=== PATIENT | female | born 1955 | race Caucasian/White ===

== ENCOUNTER 2021-03-25 13:20 | Emergency (ER) | payer MEDICARE ==
[2021-03-25] MEDS ORDERED: SODIUM CHLORIDE 0.9% 1,000 ML IV STA (13:52)
[2021-03-25] MEDS ORDERED: LACTATED RINGERS 1,000 ML IV STA (13:52)
[2021-03-25] MEDS ORDERED: LOPERAMIDE 2 MG CAPSULE PO STA (13:52)
--- NOTE | 2021-03-25 13:56 | ED Physician Documentation ---
PD HPI ABD PAIN - Stated complaint Stated Complaint: DIARRHEA - Chief complaint Chief Complaint: Abd Pain - History obtained from History obtained from: Patient - Additional information Additional information: 65-year-old woman started having trouble with diarrhea last February. At the time she was living in [place]. Subsequently was diagnosed with lymphocytic colitis by colonoscopy in the late summer of last year. Has had on and off trouble ever since and over the last couple of weeks has had increasing troubles with diarrhea culminating today in some increased periumbilical pain and what she estimates as 25 episodes of watery blowout diarrhea today associated with mild nausea but no fevers. She has not been on budesonide. She has been taking as needed Pepto-Bismol which is not helpful. She is waiting on rx for cholestyramine. Review of Systems Ten Systems: 10 systems reviewed and negative Constitutional: reports: Fatigue GI: reports: Abdominal Pain, Nausea, Diarrhea. denies: Vomiting, Hematemesis, Bloody / black stool : denies: Dysuria, Frequency PD PAST MEDICAL HISTORY - Present Medications Home Medications: Ambulatory Orders Medication Instructions Recorded Confirmed Alendronate [Fosamax] 70 mg PO Q7D 03/25/21 03/25/21 Budesonide [Entocort EC] 9 mg PO DAILY #60 cap 03/25/21 Budesonide [Entocort EC] 9 mg PO DAILY #7 cap 03/25/21 - Allergies Allergies/Adverse Reactions: Allergies Allergy/AdvReac Type Severity Reaction Status Date / Time No Known Drug Allergies Allergy Verified 03/25/21 13:35 PD ED PE NORMAL - Vitals Vital signs reviewed: Yes - General General: Alert and oriented X 3, No acute distress - Neck Neck: Supple, no meningeal sign, No bony TTP - Cardiac Cardiac: RRR, No murmur - Respiratory Respiratory: No respiratory distress, Clear bilaterally - Abdomen Abdomen: Normal bowel sounds, Soft, Non tender - Back Back: No CVA TTP, No spinal TTP - Derm Derm: Normal color, Warm and dry - Extremities Extremities: No edema, No calf tenderness / cord - Neuro Neuro: Alert and oriented X 3, Normal speech Results - Vitals Vitals: Vital Signs - 24 hr 03/25/21 03/25/21 13:28 15:17 Temperature 36.1 C L Heart Rate 85 80 Respiratory 16 17 Rate Blood Pressure 110/69 102/62 O2 Saturation 98 97 Oxygen O2 Source Room air - Labs Labs: Laboratory Tests 03/25/21 03/25/21 13:58 13:58 WBC 9.5 RBC 4.83 Hgb 14.6 Hct 45.5 MCV 94.2 MCH 30.2 MCHC 32.1 RDW 12.1 Plt Count 290 MPV 8.2 Neut # (Auto) 8.6 H Lymph # (Auto) 0.5 L [place] # (Auto) 0.4 Eos # (Auto) 0.0 Baso # (Auto) 0.0 Absolute Nucleated RBC 0.00 Nucleated RBC % 0.0 Sodium 140 Potassium 3.7 Chloride 105 Carbon Dioxide 23 Anion Gap 12.0 BUN 25 H Creatinine 0.8 Estimated GFR (MDRD) 72 L Glucose 113 H Calcium 9.0 Magnesium 2.0 Total Bilirubin 0.9 AST 27 ALT 27 Alkaline Phosphatase 57 Total Protein 7.2 Albumin 4.4 Globulin 2.8 Albumin/Globulin Ratio 1.6 PD MEDICAL DECISION MAKING - ED course ED course: 61-year-old woman with known history of lymphocytic colitis presents with an exacerbation of same. She is dehydrated and was feeling better after IV fluids and Imodium here. Lab work relatively unremarkable except for elevated BUN. Case discussed by phone with her ostrich farmer, Dr. Armani Garcia who agreed with starting budesonide. I wrote 2 prescriptions, 1 to fill at [facility] pending filling it from [facility] which will be cheaper. Departure - Departure Disposition: 01 Home, Self Care Clinical Impression: Lymphocytic colitis Condition: Good Record reviewed to determine appropriate education?: Yes Prescriptions: Budesonide [Entocort EC] 9 mg PO DAILY #60 cap Budesonide [Entocort EC] 9 mg PO DAILY #7 cap Comments: Call your doctor to arrange a follow-up appointment, make the next available appointment. In the interim, return anytime if worse or if new symptoms develop.
[2021-03-25 14:16] LABS: ALBUMIN 4.4 g/dL (3.2-5.5); ALBUMIN/GLOBULIN RATIO 1.6 (1.0-2.2); BILIRUBIN,TOTAL 0.9 mg/dL (0.2-1.0); CREATININE 0.8 mg/dL (0.4-1.0); POTASSIUM 3.7 mmol/L (3.5-5.0); TOTAL PROTEIN 7.2 g/dL (6.7-8.2)
[2021-03-25 14:17] LABS: BASOPHILS % (AUTO) 0.2 %; EOSINOPHILS % (AUTO) 0.4 %; HCT - HEMATOCRIT 45.5 % (37.0-47.0); HGB - HEMOGLOBIN 14.6 g/dL (12.0-16.0); LYMPHOCYTES # (AUTO) 0.5 10^3/uL (1.5-3.5); LYMPHOCYTES % (AUTO) 4.7 %; MEAN CORPUSCULAR HEMOGLOBIN 30.2 pg (27.0-31.0); MEAN CORPUSCULAR HGB CONC 32.1 g/dL (32.0-36.0); MEAN CORPUSCULAR VOLUME 94.2 fL (81.0-99.0); MEAN PLATELET VOLUME 8.2 fL (7.9-10.8); MONOCYTES # (AUTO) 0.4 10^3/uL (0.0-1.0); MONOCYTES % (AUTO) 3.8 %; NEUTROPHILS # (AUTO) 8.6 10^3/uL (1.5-6.6); NEUTROPHILS % (AUTO) 90.6 %; PLT - PLATELET COUNT 290 10^3/uL (130-450); RED BLOOD COUNT 4.83 10^6/uL (4.20-5.40); RED CELL DISTRIBUTION WIDTH 12.1 % (12.0-15.0); WHITE BLOOD COUNT 9.5 x10^3/uL (4.8-10.8)
[2021-03-25] MEDS ORDERED: BUDESONIDE 3 MG CAPSULE PO STA (15:26)
[2021-03-25 16:52] VITALS: BP 108/68
== END 2021-03-25 16:53 | disposition home or self-care (01) ==
LOC: ED 13:20
DX: K52.832 Lymphocytic colitis (principal)
CPT/HCPCS: 36415; 80053; 81599; 83735; 85025; 87493; 96360; 96361; 99283; 99284; A9270; J7120; 87045; 87046

== ENCOUNTER 2021-05-05 17:32 | Outpatient (CLI) | payer MEDICARE ==
[2021-05-05 19:52] LABS: BASOPHILS # (AUTO) 0.1 10^3/uL (0.0-0.1); BASOPHILS % (AUTO) 0.9 %; EOSINOPHILS # (AUTO) 0.2 10^3/uL (0.0-0.7); EOSINOPHILS % (AUTO) 4.2 %; HCT - HEMATOCRIT 43.3 % (37.0-47.0); LYMPHOCYTES # (AUTO) 2.1 10^3/uL (1.5-3.5); MEAN CORPUSCULAR HEMOGLOBIN 31.3 pg (27.0-31.0); MEAN CORPUSCULAR HGB CONC 32.3 g/dL (32.0-36.0); MEAN CORPUSCULAR VOLUME 96.9 fL (81.0-99.0); MEAN PLATELET VOLUME 8.8 fL (7.9-10.8); MONOCYTES # (AUTO) 0.4 10^3/uL (0.0-1.0); MONOCYTES % (AUTO) 6.4 %; NEUTROPHILS # (AUTO) 2.8 10^3/uL (1.5-6.6); NEUTROPHILS % (AUTO) 50.1 %; PLT - PLATELET COUNT 261 10^3/uL (130-450); RED BLOOD COUNT 4.47 10^6/uL (4.20-5.40); RED CELL DISTRIBUTION WIDTH 12.4 % (12.0-15.0); WHITE BLOOD COUNT 5.5 x10^3/uL (4.8-10.8)
[2021-05-05 20:14] LABS: ALBUMIN 4.1 g/dL (3.2-5.5); ALBUMIN/GLOBULIN RATIO 1.4 (1.0-2.2); BILIRUBIN,TOTAL 0.4 mg/dL (0.2-1.0); CALCIUM 8.7 mg/dL (8.5-10.3); CREATININE 0.8 mg/dL (0.4-1.0); MAGNESIUM 2.3 mg/dL (1.7-2.8); POTASSIUM 3.6 mmol/L (3.5-5.0)
== END 2021-05-05 23:59 | disposition home or self-care (01) ==
LOC: LAB.S 17:32
PROVIDERS: ATTEND Physician Assistant Medical
DX: G47.62 Sleep related leg cramps (principal); Z51.81 Encounter for therapeutic drug level monitoring; Z79.899 Other long term (current) drug therapy; G62.9 Polyneuropathy, unspecified
CPT/HCPCS: 36415; 80053; 83735; 85025

== ENCOUNTER 2022-04-17 10:45 | Emergency (ER) | payer MEDICARE ==
--- NOTE | 2022-04-17 11:19 | ED Physician Documentation ---
PD HPI BACK PAIN - Stated complaint Stated Complaint: LOWER BACK PX - Chief complaint Chief Complaint: Back Pain - History obtained from History obtained from: Patient - History of Present Illness Timing - onset: How many weeks ago (has had low back pain for past few weeks (even couple months to some degree intermittently). Has been more consistently painful the past 4-5 days. No new trauma. Has pain increased when lying down at night.) Timing - details: Gradual onset, Still present (more consistent at nights the past few nights, with poor sleep due to it.), Waxing and waning Location: Lower, Right, Left Quality: Pain, Spasm, Aching. No: Sharp, Tearing Associated symptoms: No: Fever, Weakness, Numbness, Incontinent of urine Worsened by: No: Movement (she states hurts more with lying down flat and trying to sleep. Feels better ambulating and during the day. She states has been still able to golf wihtout problems. 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 17 years ago.) Recently seen: Not recently seen Review of Systems Constitutional: denies: Fever, Chills Nose: denies: Rhinorrhea / runny nose, Congestion Throat: denies: Sore throat Cardiac: denies: Chest pain / pressure, Palpitations Respiratory: denies: Dyspnea, Cough GI: denies: Abdominal Pain, Nausea, Vomiting, Diarrhea : denies: Dysuria, Frequency Skin: denies: Rash, Lesions Neurologic: denies: Focal weakness, Numbness PD PAST MEDICAL HISTORY - Past Medical History Cardiovascular: None Respiratory: None Neuro: None Endocrine/Autoimmune: None Musculoskeletal: Chronic back pain (has had pain lower back intermittently, but consistent and worse just in the past weeked. ) - Past Surgical History Past Surgical History: Yes Ortho: Spine surgery - Present Medications Home Medications: Ambulatory Orders Medication Instructions Recorded Confirmed Alendronate [Fosamax] 70 mg PO Q7D 03/25/21 03/25/21 Acetaminophen [Acetaminophen Extra 500 mg PO QID PRN #30 tablet 04/17/22 Strength] Cholestyramine [Questran] 1 packet ORAL DAILY 04/17/22 04/17/22 Naproxen 250 mg PO TID 7 Days #15 tablet 04/17/22 estradioL vaginal [Estrace vaginal] 1 applic VG DAILY 04/17/22 04/17/22 oxyCODONE [Roxicodone] 5 mg PO Q6H PRN #15 tablet 04/17/22 tiZANidine [Zanaflex] 4 mg PO Q8H PRN #20 tablet 04/17/22 - Allergies Allergies/Adverse Reactions: Allergies Allergy/AdvReac Type Severity Reaction Status Date / Time acetaminophen [From Vicodin] Allergy Nausea Verified 04/17/22 10:57 hydrocodone [From Vicodin] Allergy Nausea Verified 04/17/22 10:57 - Social History Does the pt smoke?: No Smoking Status: Never smoker Does the pt drink ETOH?: Yes Does the pt have substance abuse?: No - Immunizations Immunizations are current?: Yes PD ED PE NORMAL - Vitals Vital signs reviewed: Yes - General General: Alert and oriented X 3, No acute distress (does not appear uncomfortable at this time. ) - Cardiac Cardiac: RRR, No murmur - Respiratory Respiratory: Clear bilaterally - Abdomen Abdomen: Normal bowel sounds, Soft, Non tender - Female Female : Deferred - Rectal Rectal: Deferred - Back Back: No CVA TTP, No spinal TTP - Derm Derm: Normal color, Warm and dry, No rash - Neuro Neuro: Alert and oriented X 3, No motor deficit, No sensory deficit, Normal speech, Other (normal patellar reflexes at kneess) Results - Vitals Vitals: Vital Signs - 24 hr 04/17/22 04/17/22 04/17/22 10:52 12:01 14:00 Temperature 36.4 C L 36.5 C Heart Rate 74 53 L 56 L Respiratory 16 16 16 Rate Blood Pressure 123/73 128/86 H 124/82 H O2 Saturation 98 100 100 04/17/22 15:53 Temperature 36.5 C Heart Rate 56 L Respiratory 16 Rate Blood Pressure 124/82 H O2 Saturation 100 Oxygen O2 Source Room air - Labs Labs: Laboratory Tests 04/17/22 04/17/22 04/17/22 11:50 11:50 12:00 WBC 5.6 RBC 4.50 Hgb 14.0 Hct 42.4 MCV 94.2 MCH 31.1 H MCHC 33.0 RDW 12.1 Plt Count 235 MPV 8.3 Neut # (Auto) 3.5 Lymph # (Auto) 1.5 [place] # (Auto) 0.4 Eos # (Auto) 0.0 Baso # (Auto) 0.1 Absolute Nucleated RBC 0.00 Nucleated RBC % 0.0 ESR 7 Sodium Potassium Chloride Carbon Dioxide Anion Gap BUN Creatinine Estimated GFR (MDRD) Glucose Calcium Total Bilirubin AST ALT Alkaline Phosphatase C-Reactive Protein Total Protein Albumin Globulin Albumin/Globulin Ratio Lipase Urine Color YELLOW Urine Clarity CLEAR Urine pH 5.5 Ur Specific [place] 1.025 Urine Protein NEGATIVE Urine Glucose (UA) NEGATIVE Urine Ketones NEGATIVE Urine Occult Blood NEGATIVE Urine Nitrite NEGATIVE Urine Bilirubin NEGATIVE Urine Urobilinogen 0.2 (NORMAL) Ur Leukocyte Esterase NEGATIVE Ur Microscopic Review NOT INDICATED Urine Culture Comments NOT INDICATED 04/17/22 12:19 WBC RBC Hgb Hct MCV MCH MCHC RDW Plt Count MPV Neut # (Auto) Lymph # (Auto) [place] # (Auto) Eos # (Auto) Baso # (Auto) Absolute Nucleated RBC Nucleated RBC % ESR Sodium 139 Potassium 4.3 Chloride 107 Carbon Dioxide 26 Anion Gap 6.0 BUN 23 H Creatinine 0.8 Estimated GFR (MDRD) 72 L Glucose 103 H Calcium 8.9 Total Bilirubin 0.6 AST 20 ALT 18 Alkaline Phosphatase 42 C-Reactive Protein < 1.0 Total Protein 6.7 Albumin 4.1 Globulin 2.6 Albumin/Globulin Ratio 1.6 Lipase 30 Urine Color Urine Clarity Urine pH Ur Specific [place] Urine Protein Urine Glucose (UA) Urine Ketones Urine Occult Blood Urine Nitrite Urine Bilirubin Urine Urobilinogen Ur Leukocyte Esterase Ur Microscopic Review Urine Culture Comments - Rads (name of study) abd/pelvic CT Radiology: Prelim report reviewed (no acute abnormality seen. ), See rad report PD MEDICAL DECISION MAKING - ED course Complexity details: reviewed results, considered differential (remote history of lumbar discitis and had surgery and then 90 days of IV abx. Not had problems with back since (this was approx 2013). new pain recently without trauma. No red flags per se, but got imaging due to history. Can get labs to eval for concern of inflammatory/infectious side. ), d/w patient Departure - Departure Disposition: 01 Home, Self Care Clinical Impression: Low back pain Qualifiers: Chronicity: acute Back pain laterality: bilateral Sciatica presence: without sciatica Qualified Code(s): M54.50 - Low back pain, unspecified Condition: Stable Record reviewed to determine appropriate education?: Yes Instructions: ED Low Back Pain Injury Follow-Up: Tracy Woody MD [Primary Care Provider] - Prescriptions: Acetaminophen [Acetaminophen Extra Strength] 500 mg PO QID PRN #30 tablet PRN Reason: Pain Naproxen 250 mg PO TID 7 Days #15 tablet oxyCODONE [Roxicodone] 5 mg PO Q6H PRN #15 tablet PRN Reason: Pain tiZANidine [Zanaflex] 4 mg PO Q8H PRN #20 tablet PRN Reason: Spasms Comments: Your CT scan shows arthritic changes in the spine without any acute abnormalities. Your blood tests are also good without any signs of infectious or inflammatory process. At this point I presume some musculoskeletal pain. This can get treated with anti-inflammatories and acetaminophen and pain medicine if needed. Tizanidine muscle relaxant could be useful as well perhaps. Naproxen 250 mg 3 times a day with food. Add acetaminophen 5 mg 4 times daily for the next several days to week. To that add oxycodone every 4-6 hours if needed for worse pain. Continue with the planned massage tomorrow. Heat and gentle stretching are good as well. Follow-up with your primary care if not improved well over the next several days to week. I sent your prescriptions to [facility] in [place]. Also add a stool softener such as docusate daily for the next week or so to reduce any constipation with the pain medicine. I am prescribing a short course of narcotic pain medication for you. These are potentially dangerous and addictive medications that should be used carefully. These medications may constipate you. Take an [id number] stool softener such as docusate twice daily with plenty of water while taking these medications. If you go 24 hours without a bowel movement, take [id number] MiraLAX, per package instructions. Do not drink or drive while taking these medications. If you received narcotic or sedating medications while in the emergency department do not drive for 24 hours. Store this medication in a safe, secure place and out of reach of children. It is a violation of federal law to give or sell this medication to another person or to use in a manner other than prescribed. The ED will not refill narcotic prescriptions, including prescriptions lost or stolen. You can dispose of unwanted medications at the [facility]'s office or at several pharmacies such as [facility] [employer] [facility]. Discharge Date/Time: 04/17/22 15:53
[2022-04-17] MEDS ORDERED: KETOROLAC 15 MG/ML VIAL IVP STA (11:40)
--- OUTSIDE RECORDS SUMMARY | 2022-04-17 11:44 | EXTERNAL MEDICAL SUMMARY RPT | Continuity of Care Document ---
:1955 Author Organization [facility] Address [address] [place] [address] Phone Allergies No information. Encounters No information. Functional Status No information. Immunizations No information. Medications date description facility [id number] benzonatate [facility] [place] [id number] benzonatate [facility] [place] Problems No information. Procedures date description facility [id number] Visit Code Hold [facility] [place] Results/Labs No information. Social History date description facility [id number] Never smoker [facility] [place] Vital Signs date measurement value units [id number]+0000 BMI BMI 24.53 kg/m2 [id number]+0000 BP_diastolic BP_diastolic 73 mm[H g] [id number]+0000 BP_systolic BP_systolic 120 mm[Hg] 47701202122484+0000 heart_rate heart_rate 71 /min [id number]+0000 height_metric height_metric 160.02 cm [id number]+0000 height_standard height_standard 63 in [id number]+0000 respiration_rate respiration_rate 16 /min [id number]+0000 temperature_metric temperature_metric 37.11 C [id number]+0000 temperature_standard temperature_standard 9 8.8 F [id number]+0000 weight_metric weight_metric 62.6 kg [id number]+0000 weight_standard weight_standard 138 lb
[2022-04-17 12:00] LABS: BASOPHILS # (AUTO) 0.1 10^3/uL (0.0-0.1); BASOPHILS % (AUTO) 0.9 %; EOSINOPHILS % (AUTO) 0.4 %; HCT - HEMATOCRIT 42.4 % (37.0-47.0); LYMPHOCYTES # (AUTO) 1.5 10^3/uL (1.5-3.5); LYMPHOCYTES % (AUTO) 27.7 %; MEAN CORPUSCULAR HEMOGLOBIN 31.1 pg (27.0-31.0); MEAN CORPUSCULAR VOLUME 94.2 fL (81.0-99.0); MEAN PLATELET VOLUME 8.3 fL (7.9-10.8); MONOCYTES # (AUTO) 0.4 10^3/uL (0.0-1.0); MONOCYTES % (AUTO) 7.2 %; NEUTROPHILS # (AUTO) 3.5 10^3/uL (1.5-6.6); NEUTROPHILS % (AUTO) 63.6 %; PLT - PLATELET COUNT 235 10^3/uL (130-450); RED CELL DISTRIBUTION WIDTH 12.1 % (12.0-15.0); WHITE BLOOD COUNT 5.6 x10^3/uL (4.8-10.8)
[2022-04-17 12:12] LABS: BILIRUBIN,URINE NEGATIVE (NEGATIVE); GLUCOSE, URINE (UA) NEGATIVE (NEGATIVE); KETONES,URINE (UA) NEGATIVE (NEGATIVE); LEUKOCYTE ESTERASE, URINE NEGATIVE (NEGATIVE); NITRITE,URINE NEGATIVE (NEGATIVE); OCCULT BLOOD,URINE NEGATIVE (NEGATIVE); PH,URINE 5.5 PH (5.0-7.5); PROTEIN,URINE NEGATIVE (NEGATIVE); UROBILINOGEN,URINE 0.2 (NORMAL) E.U./dL (NORMAL)
[2022-04-17 12:18] LABS: CLARITY,URINE CLEAR (CLEAR)
[2022-04-17 12:42] LABS: ALBUMIN 4.1 g/dL (3.2-5.5); ALBUMIN/GLOBULIN RATIO 1.6 (1.0-2.2); ALKALINE PHOSPHATASE 42 IU/L (42-121); ALT ALANINE AMINOTRANSFERASE 18 IU/L (10-60); AST ASPARTATE AMINOTRANSFERASE 20 IU/L (10-42); BILIRUBIN,TOTAL 0.6 mg/dL (0.2-1.0); BUN - BLOOD UREA NITROGEN 23 mg/dL (6-20); CALCIUM 8.9 mg/dL (8.5-10.3); CARBON DIOXIDE - CO2 26 mmol/L (21-32); CHLORIDE 107 mmol/L (101-111); CREATININE 0.8 mg/dL (0.4-1.0); GFR - MDRD 72 (>89); GLUCOSE 103 mg/dL (70-100); LIPASE 30 U/L (22-51); POTASSIUM 4.3 mmol/L (3.5-5.0); SODIUM 139 mmol/L (135-145); TOTAL PROTEIN 6.7 g/dL (6.7-8.2)
[2022-04-17 12:45] LABS: CRP - C-REACTIVE PROTEIN < 1.0 mg/dL (0-1.0)
--- NOTE | 2022-04-17 13:54 | CT Report ---
PROCEDURE: Abdomen/Pelvis W INDICATIONS: back pain nontraumatic for weeks, intermittent CONTRAST: IV CONTRAST: Optiray 320 ml: 100 PO CONTRAST: *NO PO CONTRAST TECHNIQUE: After the administration of intravenous contrast, 5 mm thick sections acquired from the diaphragms to the symphysis. 5 mm thick coronal and sagittal reformats were acquired. For radiation dose reducti on, the following was used: automated exposure control, adjustment of mA and/or kV according to alonso ent size. COMPARISON: None. FINDINGS: Image quality: Excellent. ABDOMEN: Lung bases: Mild dependent atelectasis in the lung bases. Heart size is normal. Solid organs: Liver and spleen are normal in size and enhancement. Gallbladder is unremarkable. Bi liary system is non dilated. Pancreas enhances normally. No adrenal nodules. Kidneys demonstrate n ormal size and enhancement, without hydronephrosis. Peritoneum and bowel: A few diverticula are seen in the colon without signs of acute diverticulitis. There is moderate stool within ascending and transverse colon. Small bowel loops appear normal. Yessi l appendix. Small hiatal hernia. No free fluid or air. Nodes and vessels: No retroperitoneal or mesenteric adenopathy by size criteria. The left common il iac artery is mildly enlarged at 1.8 cm in diameter. Right common iliac artery measures up to 1.5 cm in diameter. Mild ectasia of the infrarenal abdominal aorta, which measures up to 2.4 cm in diameter. Miscellaneous: No ventral hernias. PELVIS: Genitourinary: Bladder wall thickness is normal. Miscellaneous: No inguinal hernias or adenopathy. Bones: No suspicious bony lesions. No vertebral body compression fractures. Multilevel degenerativ e changes are seen in the lumbar spine. IMPRESSION: 1.No acute abnormality identified in the abdomen or pelvis. 2.Nago-uc-gzkfvfly multilevel degenerative changes in the lumbar spine. 3.Mild colonic diverticulosis. Small hiatal hernia. 4.Mild ectasia of the left common iliac artery. Reviewed by: Armani Jones MD on 04/17/2022 12:52 PM AKEBEN Approved by: Armani Jones MD on 04/17/2022 12:52 PM AKDT Station ID: [id number]
[2022-04-17 14:44] VITALS: BP 124/82
[2022-04-17] MEDS ORDERED: methocarbamoL 500 MG TABLET PO STA (15:30)
[2022-04-17] MEDS ORDERED: HYDROmorphone 1 MG/ML CARPUJECT IVP STA (15:30)
[2022-04-17] MEDS ORDERED: oxyCODONE/ACET 5/325 Prepack 4 PO STA (15:40)
== END 2022-04-17 15:53 | disposition home or self-care (01) ==
LOC: ED 10:45
DX: M54.50 Low back pain, unspecified (principal)
CPT/HCPCS: 36415; 74177; 80053; 81003; 83690; 85025; 85651; 86140; 96374; 99282; 99284; A9270; Q9967; 81001; 87086

== ENCOUNTER 2022-06-30 16:00 | Outpatient (CLI) | payer MEDICARE ==
[2022-06-30 23:04] LABS: BACTERIAL VAGINOSIS DNA NEGATIVE (NEGATIVE); CANDIDA GLABRATA DNA NEGATIVE (NEGATIVE); CANDIDA GROUP DNA POSITIVE (NEGATIVE); CANDIDA KRUSEI DNA NEGATIVE (NEGATIVE); TRICHOMONAS VAGINALIS DNA NEGATIVE (NEGATIVE)
== END 2022-06-30 23:59 | disposition home or self-care (01) ==
LOC: LAB 16:00
PROVIDERS: ATTEND Registered Nurse
DX: N76.0 Acute vaginitis (principal)
CPT/HCPCS: 81514; 87255; 87529